=== PATIENT | female | born 1990 | race Caucasian/White ===

== ENCOUNTER 2019-05-16 14:41 | Emergency (ER) | payer OTHER ==
[2019-05-16 15:05] VITALS: BP 115/67
[2019-05-16] MEDS ORDERED: ACETAMINOPHEN 325 MG TABLET PO ONE ×2 (15:14→19:45)
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
[2019-05-16 15:51] LABS: AMORPHOUS SEDIMENT,URINE TRACE /HPF; APPEARANCE,URINE SLIGHTLY-CLOUDY; BILIRUBIN,URINE NEGATIVE (NEGATIVE); COLOR,URINE YELLOW; GLUCOSE, URINE NEGATIVE (NEGATIVE); KETONES,URINE TRACE mg/dL (NEGATIVE); PROTEIN,URINE NEGATIVE (NEGATIVE); URINE SPECIFIC GRAVITY 1.012; UROBILINOGEN,URINE NEGATIVE mg/dL (<2.0)
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
== END 2019-05-16 20:06 | disposition home or self-care (01) ==
LOC: ER 14:41
DX: S20.02XA Contusion of left breast, initial encounter (principal); S90.32XA Contusion of left foot, initial encounter; S30.1XXA Contusion of abdominal wall, initial encounter; S06.9X9A Unspecified intracranial injury with loss of consciousness of unspecified duration, initial encounter; R10.9 Unspecified abdominal pain; M79.10 Myalgia, unspecified site; M54.9 Dorsalgia, unspecified; V89.2XXA Person injured in unspecified motor-vehicle accident, traffic, initial encounter; F17.200 Nicotine dependence, unspecified, uncomplicated
CPT/HCPCS: 70450; 71260; 72125; 74177; 81001; 81025; 87086; 99284